=== PATIENT | female | born 1985 | race Caucasian/White ===

== ENCOUNTER 2021-06-04 16:40 | Outpatient (REF) | payer MEDICAID, SELFPAY ==
[2021-06-04 16:59] LABS: MANUAL DIFF FLAG NO
[2021-06-04 17:44] LABS: Basophils Percent Auto 0.6 % (0-2); Eosinophils Absolute Auto 0.1 X10*3/uL (0.0-0.4); Eosinophils Percent Auto 2.1 % (0-4); Hematocrit 37.7 % (37-47); Hemoglobin 12.6 g/dl (12.0-16.0); Imm Gran Abs Auto 0.01 X10*3/uL (0.00-0.03); Imm Gran Pct Auto 0.1 % (0.0-0.4); Lymphocytes Percent Auto 44.3 % (20-40); Mean Corpuscular HGB Conc 33.4 g/dl (31.0-35.0); Mean Corpuscular Hemoglobin 27.6 pg (27.0-33.0); Mean Corpuscular Volume 82.7 fL (80-98); Mean Platelet Volume 10.9 fL (9.4-12.3); Monocytes Absolute Auto 0.4 X10*3/uL (0.1-1.2); Monocytes Percent Auto 5.9 % (2-11); Neutrophils Absolute Auto 3.2 X10*3/uL (2.0-8.3); Platelet Count 259 X10*3/uL (160-400); Red Blood Count 4.56 X10*6/uL (4.20-5.50); Red Cell Distribution Width 13.3 % (11.0-16.0); White Blood Count 6.8 X10*3/uL (4.8-10.8)
[2021-06-04 18:06] LABS: Alanine Aminotransferase 6 U/L (0-31); Albumin Level 4.3 g/dL (3.5-5.0); Alkaline Phosphatase 79 U/L (39-117); Anion Gap 12 (12-20); Aspartate Amino Transferase 12 U/L (5-31); Bilirubin Total 0.6 mg/dL (0.0-1.0); Blood Urea Nitrogen 9 mg/dL (9-16); Calcium 9.3 mg/dL (8.4-10.2); Carbon Dioxide 25 mmol/L (22-29); Chloride 106 mmol/L (96-108); Estimated Glomerular Filt Rate > 60; Glucose Random 96 mg/dL (60-115); Potassium 3.8 mmol/L (3.3-5.1); Sodium 139 mmol/L (135-145); Total Protein 7.6 g/dL (6.5-8.0)
[2021-06-05 08:26] LABS: EBV-NA IgG Index >600.00 U/mL; EBV-VCA IgG Ab >750.00 U/mL; EBV-VCA IgM Ab <36.00 U/mL
== END 2021-06-04 16:41 | disposition home or self-care (01) ==
LOC: HO.LAB 16:40
PROVIDERS: Absent Provider Internal Medicine; PCP Internal Medicine; Visit Provider Family Medicine
DX: M79.10 Myalgia, unspecified site (principal)
CPT/HCPCS: 36415; 80053; 85025; 86664; 86665

== ENCOUNTER 2021-09-08 12:38 | Outpatient (REF) | payer MEDICAID, SELFPAY ==
--- NOTE | 2021-09-08 12:42 | EEG_ITS ---
This is a 16-channel EEG with an EKG lead. Patient is reported awake during the tracing. Background EEG rhythm during most of the tracing is 14 to 16 hertz, 5 to 20 microvolt posteriorly, lower amplitude fast anteriorly. During last part of the tracing, patient transitioned into drowsiness with no significant abnormality. Photic stimulation does not produce any significant driving. Hyperventilation is not performed. Cardiac lead does not reveal any significant abnormality. No sharp wave spikes or paroxysmal tendency noted. IMPRESSION: Unremarkable EEG. MD MARGUERITE Cazares/[place] / [id number]
== END 2021-09-08 12:39 | disposition home or self-care (01) ==
LOC: HO.NEURO 12:38
PROVIDERS: Visit Provider Internal Medicine
DX: R40.20 Unspecified coma (principal)
CPT/HCPCS: 95816

== ENCOUNTER 2022-03-30 09:59 | Outpatient (REF) | payer MEDICAID, SELFPAY ==
--- NOTE | ~2022-03-30 | US_ITS ---
EXAMINATION: US ABDOMEN COMPLETE CLINICAL INFORMATION: Right upper quadrant pain. Epigastric pain. COMPARISON: Ultrasound abdomen 07/07/2013. TECHNIQUE: Real-time imaging of the abdominal viscera. FINDINGS: PANCREAS: Normal. ABDOMINAL AORTA: The proximal, mid, and distal segments are normal in caliber. INFERIOR VENA CAVA: Visualized portions are normal. LIVER: Normal. The liver is normal in size. The liver contour is normal. Parenchymal echogenicity is normal. No focal hepatic lesion. There is no intrahepatic biliary duct dilatation seen. GALLBLADDER: Normal. The gallbladder is physiologically distended without evidence of stones, sludge, polyps, wall thickening or pericholecystic fluid. COMMON BILE DUCT: Normal in caliber measuring 0.4 cm in diameter. RIGHT KIDNEY: There is mild hydronephrosis. No renal calculi or focal parenchymal lesions. The kidney measures 10.1 cm in maximum dimension. LEFT KIDNEY: Normal. No hydronephrosis. No renal calculi or focal parenchymal lesions. The kidney measures 9.8 cm in maximum dimension. SPLEEN: Normal. The spleen measures 10.3 cm in maximum dimension. FREE FLUID: None. There are normal bilateral ureteral jets seen in the bladder. US/US abdomen complete IMPRESSION: Mild right hydronephrosis. Limited imaging through the bladder reveals a normal bilateral ureteral jets. Rest of the abdominal ultrasound is unremarkable
== END 2022-03-30 10:00 | disposition home or self-care (01) ==
LOC: HO.US 09:59
PROVIDERS: Visit Provider Family Medicine
DX: R10.13 Epigastric pain (principal)
CPT/HCPCS: 76700

== ENCOUNTER 2023-04-12 17:11 | Outpatient (REF) | payer MEDICAID, SELFPAY ==
[2023-04-12 19:55] LABS: Influenza A PCR NEGATIVE (Negative); Influenza B PCR NEGATIVE (Negative); Resp Syncy Virus RNA Qual PCR NEGATIVE (Negative); SARS COV2 PCR INHOUSE NEGATIVE (Negative)
== END 2023-04-12 17:12 | disposition home or self-care (01) ==
LOC: HO.HHCLNP 17:11
PROVIDERS: Visit Provider Registered Nurse
DX: Z20.822 Contact with and (suspected) exposure to COVID-19 (principal); R05.9 Cough, unspecified; B34.9 Viral infection, unspecified
CPT/HCPCS: 0241U

== ENCOUNTER 2023-06-19 13:09 | Outpatient (REF) | payer MEDICAID, SELFPAY ==
--- NOTE | ~2023-06-19 | XR_ITS ---
EXAMINATION: XR LUMBOSACRAL SPINE WITH OBLIQUES CLINICAL INFORMATION: Low back pain COMPARISON: None available. TECHNIQUE: AP, both oblique, and lateral views of the lumbar spine. Lateral view of the lumbosacral junction. FINDINGS: The vertebral bodies and posterior elements are normal. The disc spaces are preserved and the vertebral alignment is normal. The paraspinal soft tissues are normal. XR/XR lumbar spine 4V min IMPRESSION: Unremarkable examination.
== END 2023-06-19 13:10 | disposition home or self-care (01) ==
LOC: HO.XRAY 13:09
PROVIDERS: PCP Internal Medicine; Visit Provider Internal Medicine
DX: M54.42 Lumbago with sciatica, left side (principal); M54.41 Lumbago with sciatica, right side
CPT/HCPCS: 72110

== ENCOUNTER 2023-09-29 08:31 | Outpatient (REF) | payer MEDICAID, SELFPAY | END 2023-09-29 08:32 | disposition home or self-care (01) | LOC: HO.SH 08:31 | PROVIDERS: Visit Provider Internal Medicine | DX: Z01.10 Encounter for examination of ears and hearing without abnormal findings (principal); H93.293 Other abnormal auditory perceptions, bilateral; H92.02 Otalgia, left ear | CPT/HCPCS: 92557; 92567 ==

== ENCOUNTER 2024-11-12 10:27 | Outpatient (REF) | payer MEDICAID, SELFPAY ==
--- OUTSIDE RECORDS SUMMARY | 2024-11-12 19:09 | XMS_ITS | Encounter Summary ---
Author Organization [facility] Address [address] [place] [address] Care Team Providers Care Infant Room Teacher Name Role Phone Prieto Dacosta MD Primary Care Provider [phone] Reason for Referral * Imaging (Urgent) - Authorized Specialty Diagnoses / Procedures Referred By Contac t Referred To Contact Radiology Diagnoses Abnormal uterine bleeding Procedures Us Pelvis complete Gerri Pritchett CNM [address] [place] [address] Phone: tel: fax: [address] Phone: tel: fax: Referral ID Status Reason Start Date Expiration Date V isits Requested Visits Authorized [id number] Authorized 11/12/2024 11/12/2025 1 1 * Imaging (Urgent) - Authorized Specialty Diagnoses / Procedures Referred By Contac t Referred To Contact Radiology Diagnoses Abnormal uterine bleeding Procedures US Pelvis Transvaginal Gerri Pritchett CNM [address] [place] [address] Phone: tel: fax: [address] Phone: tel: fax: Referral ID Status Reason Start Date Expiration Date V isits Requested Visits Authorized [id number] Authorized 11/12/2024 11/12/2025 1 1 * Consultation (Routine) - Closed Specialty Diagnoses / Procedures Referred By Joaquim felix Referred To Contact Obstetrics Diagnoses Procreative management Gerri Pritchett CNM [address] [place] [address] Phone: tel: fax: Reproductive Medicine, [address] Phone: tel: fax: Referral ID Status Reason Start Date Expiration Date V isits Requested Visits Authorized [id number] Closed Specialty Services Required 11/12/2024 11/12/2025 1 1 Reason for Visit * Reason Comments Gynecologic Exam Encounter Details Date Type Department Care Team ([facility] st Contact Info) Description 11/12/2024 10:15 AM EDT Office Visit [facility] [address] [place] [phone] Gerri Pritchett CNM [address] [place] [address] Abnormal uterine bleeding (Primary Dx); Cervical cancer [...] from previous AMAB partner who is in [place]. Feels safe at home. Unsure of last [...] Blood Count 5.0 4.8 - 10.8 X10*3/uL [facility] Red Blood Count 4.33 4.20 - 5.50 X10*6/uL [facility] Hemoglobin 12.2 12.0 - 16.0 g/dl [facility] Hematocrit 36.6(L) 37.0 - 47.0 % [facility] Mean Corpuscular Volume 84.5 80.0 - 98.0 fL [facility] Mean Corpuscular Hemoglobin 28.2 27.0 - 33.0 pg [facility] Mean Corpuscular HGB Conc 33.3 31.0 - 35.0 g/dl [facility] Red Cell Distribution Width 13.6 11.0 - 16.0 % [facility] Platelet Count 255 160 - 400 X10*3/uL [facility] Mean Platelet Volume 10.5 9.4 - 12.3 fL [facility] NRBC Pct Auto 0.0 0.0 - 0.2 /100WBC [facility] NRBC Abs Auto 0.000 0.0 - 0.012 X10*3/uL [facility] Blood Venous blood specimen / Unknown 11/12/2024 10:54 AM EDT 11/12/2024 11:16 AM EDT [facility] LAB BLOOD ORDERABLES Marichuy l Result Performing Organization Address [facility] Co de Phone Number [facility] [address] [place] [phone] * TSH W/Reflex to FT4 (11/12/2024 10:54 AM EDT) TSH reflex Free T4 0.76 0.32 - 4.0 uIU/mL [facility] Blood Venous blood specimen / Unknown 11/12/2024 10:54 AM EDT 11/12/2024 11:[address] [facility] LAB BLOOD ORDERABLES Marichuy l Result Performing Organization Address [facility] Co de Phone Number [facility] [address] [place] [phone] documented in this encounter Visit Diagnoses [...] documented as of this encounter Care Teams Infant Room Teacher Relationship Specialty Start Date End Date Prieto Dacosta MD [address] [place] [phone] PCP - General Internal Medicine 12/01/11 documented as of this encounter
--- OUTSIDE RECORDS SUMMARY | 2024-11-12 19:09 | XMS_ITS | Encounter Summary ---
Author Organization [facility] Address [address] [place] [address] Care Team Providers Care Operations Boardman Name Role Phone Prieto Dacosta MD Primary Care Provider Reason for Visit * Reason Comments Med Refill Encounter Details Date Type Department Care Team ([facility] st Contact Info) Description 03/20/2023 Refill [facility] & PEDS [address] [place] [address] Prieto Dacosta MD [address] [place] [address] Seasonal allergic rhinitis due to other allergic [...] documented as of this encounter Care Teams Operations Boardman Relationship Specialty Start Date End Date Prieto Dacosta MD [address] [place] [address] PCP - General Internal Medicine 12/01/11 documented as of this encounter
--- OUTSIDE RECORDS SUMMARY | 2024-11-12 19:09 | XMS_ITS | Clinical Summary ---
Author Organization [facility] Address [address] [place] [phone] Care Team Providers Care Nitric Acid Plant Operator Name Role Phone Unavailable Primary Care Provider [...] Influencers of Health Screening 07/12/2022 COVID-19 Vaccine (1 - 2023-2 5 season) 2024 Influenza Vaccine (Season Ended) 2025 HIB Vaccines Aged Out No longer eligi [...]
--- OUTSIDE RECORDS SUMMARY | 2024-11-12 19:09 | XMS_ITS | Encounter Summary ---
Author Organization [facility] Address [address] [facility] [address] [place] [address] Care Team Providers Care Cdl B Driver Name Role Phone Prieto Dacosta MD Primary Care Provider [phone] Encounter Details Date Type Department Care Team (Late st Contact Info) Description 12/28/2023 Orders Only [facility] [address] [place] [address] ProviderMatt MD Social History Tobacco Use Types [...] documented as of this encounter Care Teams Cdl B Driver Relationship Specialty Start Date End Date Prieto Dacosta MD [address] [place] [phone] PCP - General Internal Medicine 12/01/11 documented as of this encounter
--- OUTSIDE RECORDS SUMMARY | 2024-11-12 19:09 | XMS_ITS | Clinical Summary ---
Author Organization [employer] Address [address] [place] [address] 7 [place] [address] Care Team Providers Care Commodities Requirements Analyst Name Role Phone Prieto Dacosta MD Primary Care Provider Allergies Active Allergy Reactions Criticality Noted Date [...] 10/30/19 25 2025 Active [facility] 1 each every 4 [...] Description 11/12/2024 10:15 AM EDT Office Visit [facility] [address] [place] [phone] Gerri Pritchett CNM Abnormal uterine bleeding (Primary Dx); Cervical cancer screening; Encntr screen for infections w sexl mode of transmiss; Procreative management 11/12/2024 Travel 10/29/2024 10:20 AM EDT Office Visit [facility] [address] [place] [address] Duarte Sanches MD Influenza B (Primary Dx); Mild intermittent asthma with exacerbation; Tobacco dependence; Metrorrhagia 10/29/2024 Travel 10/25/2024 Population Health Risk Score [facility] [address] [place] [phone] Provider, Population Health Generic 08/20/2024 5:40 PM EST Office Visit [facility] [address] [place] [address] Fab Perez MD Insomnia, unspecified [...] Free T4 0.76 0.32 - 4.0 uIU/mL [facility] Blood Venous blood specimen / Unknown 11/12/2024 10:54 AM EDT 11/12/2024 11:16 AM EDT us Gerri MARTIN LAB BLOOD ORDERABLES Marichuy lambert Result [facility] [address] [place] [phone] * (ABNORMAL) CBC (11/12/2024 10:54 AM EDT) Pathologist [facility] White Blood Count 5.0 4.8 - 10.8 X10*3/uL [facility] Red Blood Count 4.33 4.20 - 5.50 X10*6/uL [facility] Hemoglobin 12.2 12.0 - 16.0 g/dl [facility] Hematocrit 36.6(L) 37.0 - 47.0 % [facility] Mean Corpuscular Volume 84.5 80.0 - 98.0 fL [facility] Mean Corpuscular Hemoglobin 28.2 27.0 - 33.0 pg [facility] Mean Corpuscular HGB Conc 33.3 31.0 - 35.0 g/dl [facility] Red Cell Distribution Width 13.6 11.0 - 16.0 % [facility] Platelet Count 255 160 - 400 X10*3/uL [facility] Mean Platelet Volume 10.5 9.4 - 12.3 fL [facility] NRBC Pct Auto 0.0 0.0 - 0.2 /100WBC [facility] NRBC Abs Auto 0.000 0.0 - 0.012 X10*3/uL [facility] Blood Venous blood specimen / Unknown 11/12/2024 10:54 AM EDT 11/12/2024 11:16 AM EDT us Gerri MARTIN LAB BLOOD ORDERABLES Marichuy l Result [facility] [address] [place] [phone] * (ABNORMAL) Influenza B (ID NOW Rapid Molecular) (10/29/2024 10:20 AM EDT) [facility] Influenza B Positive( A) Negative, Indeterminate [facility] Swab 10/29/2024 10:2 0 AM EDT us Duarte Sanches MD POINT OF CARE TEST ENTER/EDIT OR DERABLES Final Result Performing Organization Address [facility]/ZIP Co de Phone Number [facility] [address] [place] [phone] * Influenza A (ID NOW Rapid Molecular) (10/29/2024 10:20 AM EDT) Influenza A Negative Negative, Indeterminate [facility] Swab 10/29/2024 10:2 0 AM EDT us Duarte Sanches MD POINT OF CARE TEST ENTER/EDIT OR DERABLES Final Result Performing Organization Address [facility] Co de Phone Number [facility] [address] [place] [phone] * POCT Rapid COVID Ag (10/29/2024 10:20 AM EDT) Rapid COVID Ag Negative [facility] Swab 10/29/2024 10:2 0 AM EDT us Duarte Sanches MD POINT OF CARE TEST ENTER/EDIT OR DERABLES Final Result Performing Organization Address [facility] Co de Phone Number [facility] [address] [place] [phone] * HIV 1/2 ANTIGEN/ANTIBODY,FOURTH GENERATION W/RFL (08/31/2021 10:43 AM EST) HIV-1/2 ANTIGEN AND ANTIBODIES, 4TH GENERATION W/ REFLEX NON-REACT KATARZYNA NON-REACT KATARZYNA [facility] Comment: HIV-1 antigen and HIV-1/HIV-2 [...] ? For additional information please refer to http://education.Fablic/faq/LRW469 (This link is being provided for informational/ educational purposes only.) ? The performance of this assay has not been clinically validated in patients less than 2 years old. ?? 08/31/2021 10:4 3 AM EST us Jackie Blackmon MD LAB BLOOD ORDERABLES Final Re sult Performing Organization Address City/State/ZIP Co wy Phone Number [facility] [address] from Last 3 Months or Most Recently Relevant to Health Maintenance Insurance [address] [place], [place] [id number] Care Teams Commodities Requirements Analyst Relationship Specialty Start Date End Date Prieto Dacosta MD [address] [place] [phone] PCP - General Internal Medicine 12/01/11
--- OUTSIDE RECORDS SUMMARY | 2024-11-12 19:09 | XMS_ITS | Encounter Summary ---
Author Organization [employer] Address [address] [facility] 7 [place] [address] Care Team Providers Care Hotel Casino Floorperson Name Role Phone Prieto Dacosta MD Primary [...] documented as of this encounter Care Teams Hotel Casino Floorperson Relationship Specialty Start Date End Date Prieto Dacosta MD [address] [place] [phone] PCP - General Internal Medicine 12/01/11 documented as of this encounter
[2024-11-14 15:18] LABS: C. trachomatis RNA TMA NOT DETECTED (NOT DETECTED); N. gonorrhoeae RNA TMA NOT DETECTED (NOT DETECTED); Trichomonas (NAAT) NOT DETECTED (NOT DETECTED)
[2024-11-20 14:56] LABS: HPV Genotype 16 Negative (Negative); HPV Genotype 18 Negative (Negative); HPV High Risk Negative (Negative)
== END 2024-11-12 10:28 | disposition home or self-care (01) ==
LOC: HO.LNP 10:27
PROVIDERS: Visit Provider Advanced Practice Midwife
DX: Z12.4 Encounter for screening for malignant neoplasm of cervix (principal); Z11.3 Encounter for screening for infections with a predominantly sexual mode of transmission; Z11.51 Encounter for screening for human papillomavirus (HPV)
CPT/HCPCS: 87491; 87591; 87626; 87661; 88175

== ENCOUNTER 2024-11-12 10:52 | Outpatient (REF) | payer MEDICAID, SELFPAY ==
[2024-11-12 11:31] LABS: Hematocrit 36.6 % (37.0-47.0); Hemoglobin 12.2 g/dl (12.0-16.0); Mean Corpuscular HGB Conc 33.3 g/dl (31.0-35.0); Mean Corpuscular Hemoglobin 28.2 pg (27.0-33.0); Mean Corpuscular Volume 84.5 fL (80.0-98.0); Mean Platelet Volume 10.5 fL (9.4-12.3); Platelet Count 255 X10*3/uL (160-400); Red Blood Count 4.33 X10*6/uL (4.20-5.50); Red Cell Distribution Width 13.6 % (11.0-16.0)
[2024-11-12 12:20] LABS: TSH reflex Free T4 0.76 uIU/mL (0.32-4.0)
--- OUTSIDE RECORDS SUMMARY | 2024-11-12 13:04 | XMS_ITS | Clinical Summary ---
Author Organization [facility] Address [address] [place] [address] 7 [place] [address] Care Team Providers Care Broadcast Systems Engineer Name Role Phone Prieto Dacosta MD Primary Care Provider [phone] Allergies Active Allergy Reactions Criticality Noted Date Comments Morphine Hives 06/02/2021 Sulfa Antibiotics 12/08/2011 Medications * This document contains information received from the source organization and may not represent a complete record from that organization. hydrOXYzine HCl (Atarax) 25 MG tablet TOME JR TABLETA JF VECES AL D A CUANDO SEA NECESARIO 01/27/20 22 Active FLUoxetine (PROzac) 20 MG capsuleIndicat ions:Depressiv e disorder TOME JR C PSULA TODOS LOS D EN LA MA JODI 30 capsule 11 05/15/20 23 Active cyclobenzaprin e (Flexeril) 10 MG tabletIndicati ons:Acute midline low back pain with bilateral sciatica Take 1 tablet (10 mg) by mouth 3 times daily for 10 days. 30 tablet 06/19/20 23 Active fluticasone (Flonase) 50 MCG/ACT nasal sprayIndicatio ns:Acute viral syndrome Administer 2 sprays into each nostril in the morning. Shake gently. Before first use, prime pump. After use, clean tip and replace cap. 48 g 07/11/20 23 Active varenicline (Chantix Continuing Month Arnav) 1 MG tablet Take 1 tablet (1 mg) by mouth 2 times daily. Take with full glass of water. 60 tablet 2 08/17/19 24 Active Spacer/Aero-Ho lding Chambers (OptiChamber Stacy) misc 1 each every 4 (four) hours if needed (asthma). 1 each 08/17/19 24 Active Spacer/Aero-Ho lding Chambers (OptiChamber Stacy) misc 1 each every 4 (four) hours if needed (asthma). 1 each 10/16/19 24 Active acetaminophen (Tylenol) 500 MG tablet Take 2 tablets (1,000 mg) by mouth every 6 (six) hours if needed for moderate pain or fever for up to 25 doses. 30 tablet 10/16/19 24 Active azithromycin (Zithromax Z-Arnav) 250 MG tablet Take 2 tablets once on day 1, then 1 tablet 1x/day for 4 days. 6 tablet 10/16/19 24 Active nicotine (Nicoderm CQ) 7 MG/24HR patch Place 1 patch on the skin 1 (one) time each day at the same time. 14 patch 10/16/19 24 Active Azelastine HCl 137 MCG/SPRAY solution ADMINISTER 2 SPRAYS INTO EACH NOSTRIL 2 TIMES DAILY. USE IN EACH NOSTRIL DIRECTED 30 mL 3 11/14/19 24 Active neomycin-bacit racin-polymyxi n (Neosporin Original) ointment Apply topically 2 times daily. Apply to left 3rd toe 10 g 12/29/19 24 Active ibuprofen 400 MG tablet Take 1 tablet (400 mg) by mouth every 6 (six) hours if needed for moderate pain or fever for up to 30 doses. 30 tablet 12/29/19 24 Active nicotine polacrilex (Commit) 4 MG lozenge Dissolve 1 lozenge (4 mg) in the mouth every 2 (two) hours if needed for smoking cessation. 100 lozenge 12/29/19 24 Active Misc. Devices (Pulse Oximeter For Finger) miscIndication s:COVID-19 To use every 4 hours. Call the office if O2 sat<88 % 1 each 01/25/20 24 Active Paxlovid, 300/100, 20 x 150 MG & 10 x 100MG tablet therapy packIndication s:COVID-19 TAKE 1 DOSE BY MOUTH IN THE MORNING AND AT BEDTIME. 30 each 01/26/20 24 Active nicotine (Nicoderm, Step 2) 14 MG/24HR patch PLACE 1 PATCH ON THE SKIN 1 TIME EACH DAY AT THE SAME TIME. 42 patch 04/08/20 24 Active loratadine (Claritin) 10 MG tabletIndicati ons:Acute viral syndrome TOME JR TABLETA POR VIA ORAL CADA MANANA 90 tablet 04/16/20 24 Active diphenhydrAMIN E (BENADryl) 25 MG tabletIndicati ons:Insomnia, unspecified type Take 1-2 tablets (25mg - 50mg) PO at bedtime prn for insomnia 20 tablet 08/20/19 25 Active nicotine (Nicoderm CQ) 14 MG/24HR patch Place 1 patch on the skin 1 (one) time each day at the same time. 14 patch 1 10/30/19 25 Active nicotine (Nicoderm CQ) 21 MG/24HR patch Place 1 patch on the skin 1 (one) time each day at the same time. 42 patch 1 10/30/19 25 Active nicotine (Nicoderm CQ) 7 MG/24HR patch Place 1 patch on the skin 1 (one) time each day at the same time. 14 patch 1 10/30/19 25 2024 Active nicotine polacrilex (Commit) 2 MG lozenge Dissolve 1 lozenge (2 mg) in the mouth if needed for smoking cessation. 100 lozenge 1 10/30/19 25 2024 Active albuterol (ProAir HFA) 108 (90 Base) MCG/ACT inhaler Inhale 2 puffs every 4 (four) hours if needed for wheezing or shortness of breath. 18 g 2 10/30/19 25 Active albuterol (2.5 MG/3ML) 0.083% nebulizer solution Take 3 mL (2.5 mg) by nebulization every 6 (six) hours if needed for wheezing or shortness of breath. 75 mL 2 10/30/19 25 2025 Active Spacer/Aero-Ho lding Chambers ([facility]) misc 1 each every 4 (four) hours if needed (asthma). 1 each 10/30/19 25 Active acetaminophen (Tylenol) 500 MG tablet Take 2 tablets (1,000 mg) by mouth every 6 (six) hours if needed for moderate pain or fever for up to 25 doses. 50 tablet 10/30/19 25 Active ibuprofen 400 MG tablet Take 1 tablet (400 mg) by mouth every 6 (six) hours if needed for moderate pain or fever for up to 30 doses. 30 tablet 10/30/19 25 Active cetirizine (ZyrTEC) 10 MG tablet Take 1 tablet (10 mg) by mouth in the morning. 30 tablet 11 03/20/20 23 2022 Discontinued albuterol (ProAir HFA) 108 (90 Base) MCG/ACT inhaler Inhale 2 puffs every 4 (four) hours if needed for wheezing or shortness of breath. 18 g 2 10/16/19 24 2024 Discontinued(R eorder (will not trigger notification to Pharmacy)) albuterol (2.5 MG/3ML) 0.083% nebulizer solution Take 3 mL (2.5 mg) by nebulization every 6 (six) hours if needed for wheezing or shortness of breath. 75 mL 1 10/16/19 24 2024 Discontinued(R eorder (will not trigger notification to Pharmacy)) predniSONE (Deltasone) 20 MG tablet Take 2 tablets (40 mg) by mouth Once per day for 5 days. 10 tablet 10/30/19 25 2024 Active Problems Problem Noted Date Diagnosed Date Mild intermittent asthma with exacerbation 10/29 Tobacco dependence 08/17/2023 Asthma 08/13/2021 Difficulty urinating 01/12/2018 Obesity 05/04/2006 Urinary tract infectious disease 04/14/2006 Anxiety state 03/13/2006 Depressive disorder 03/13/2006 Allergic rhinitis 02/23/2006 Encounters * This document contains information received from the source organization and may not represent a complete record from that organization. Date Type Department Care Team Description 11/12/2024 10:15 AM EDT Office Visit [facility] [address] [place] [phone] Gerri Pritchett CNM Abnormal uterine bleeding (Primary Dx); Cervical cancer screening; Encntr screen for infections w sexl mode of transmiss; Procreative management 11/12/2024 Travel 10/29/2024 10:20 AM EDT Office Visit [facility] [address] [place] [address] Duarte Sanches MD Influenza B (Primary Dx); Mild intermittent asthma with exacerbation; Tobacco dependence; Metrorrhagia 10/29/2024 Travel 10/25/2024 Population Health Risk Score [facility] [address] [place] [phone] Provider, Population Health Generic 08/20/2024 5:40 PM EST Office Visit [facility] [address] [place] [address] Fab Perez MD Insomnia, unspecified type (Primary Dx) from Last 3 Months Family History Medical History Relation Name Comments Lung cancer Sister Relation Name Status Comments Sister Social History Tobacco Use Types Packs/Day Years Used Date Smoking Tobacco: Some Days Cigarettes 2 10 Smokeless Tobacco: Never Tobacco Cessation:Ready to Q uit: Not Asked; Counseling Given: Not Answered Alcohol Use Standard Drinks/Week Comments Never 0 (1 standard drink = 0.6 oz pur e alcohol) Depression Answer Date Recorded Patient Health Questionnaire-9 Score 21 11/12/2024 Patient Health Questionnaire-9 Score 21 11/12/2024 Last PHQ-9: Questionnaire Data Not on file 0 11/12/2024 Housing Stability Answer Date Recorded What is your housing situation today? I have asher more 06/05/[address] you li ve. Do you have problems with any of the following? None of the above 06/05/2023 Food Insecurity Answer Date Recorded Within the past 12 months, y ou worried that your food would run out before you got money to buy more: Never True 06/05/2023 Within the past 12 months,th e food you bought just didn't last and you didn't have enough money to get more: Never True Transportation Answer Date Recorded In the past 12 months, has l ack of transportation kept you from medical appts, meetings, work or from getting things needed for daily living? No 06/05/2023 Utilities Answer Date Recorded In the past 12 months, has t he electric, gas, oil or water company threatened to shut off services in your home? No 06/05/2023 Depression Answer Date Recorded Patient Health Questionnaire-2 Score 6 11/12/2024 Comments No Sex and Gender Information Value Date Recorded Sex Assigned at Female 06/13/2022 10:18 AM EDT Legal Sex Female 10:18 AM EDT Gender Identity Female 06/13/2022 10:18 AM EDT Sexual Orientation Straight 06/13/2022 10 :18 AM EDT Last Filed Vital Signs Vital Sign Reading Time Taken Comments Blood Pressure 121/81 11/12/2024 10:25 AM EDT Pulse 98 11/12/2024 10:25 AM EDT Temperature 36.6 ??C (97.8 ??F) 11/12/2024 10:25 AM E DT Respiratory Rate 20 11/12/2024 10:25 AM EDT Oxygen Saturation 98% 11/12/2024 10:25 AM EDT Inhaled Oxygen Concentration - - Weight 80.3 kg (177 lb) 11/12/2024 10:25 AM EDT Height 157.5 cm (5' 2 ) 11/12/2024 10:25 AM EDT Body Mass Index 32.37 11/12/2024 10:25 AM EDT Plan of Treatment Health Maintenance Due Date Last Done Comments Lipid Panel 1987 Alcohol/Substance Use Screening 1999 Hepatitis C Screening 2005 DTaP/Tdap/Td Vaccines (1 - Tdap) 2006 Hepatitis B Vaccines (1 of 3 - 19+ 3-dose series) 2006 Pneumococcal Vaccine: Pediatrics (0 to 5 Years) and At-Risk Patients (6 to 49) Years) (1 of 2 - PCV) 2006 Pap Smear 02/29/2008 Cervical Cancer Screening 2017 HPV/Cotest 2017 SDOH Screening 10/04/2023 10/04/2022 COVID-19 Vaccine (3 - 2023-2 5 season) 2024 09/24/2021, 04/12/2021 Influenza Vaccine (#1) 2024 Depression Monitoring (PHQ-9) 05/14/2025, 11/12/2024 Depression Screening 11/12/2025 11/12/2024, 11/12/2024 Family Planning (PISQ) 11/12/2025 11/12/2024 Tobacco Screening 11/12/2025 11/12/2024 Zoster Vaccines (1 of 2) 2037 RSV Patients and Patients Aged 60 years or older (1 - 1-dose 75+ series) 2062 HIV Screening Completed 08/31/2021 HIB Vaccines Aged Out No longer eligi ble based on patient's age to complete this topic HPV Vaccines Aged Out No longer eligi ble based on patient's age to complete this topic Hepatitis A Vaccines Aged Out No long er eligible based on patient's age to complete this topic IPV Vaccines Aged Out No longer eligi ble based on patient's age to complete this topic Meningococcal Vaccine Aged Out No chioma blas eligible based on patient's age to complete this topic RSV under 20 months Aged Out No longe r eligible based on patient's age to complete this topic Rotavirus Vaccines Aged Out No longer eligible based on patient's age to complete this topic Procedures Procedure Name Priority Date/Time Associated Diagnosis Comments CBC Routine 11/12/2024 10:54 AM EDT Abnormal uterine bleeding TSH W/REFLEX TO FT4 Routine 11/12/2024 1 0:54 AM EDT Abnormal uterine bleeding POCT INFLUENZA B (ID NOW RAPID MOLECULAR) Routine 10/29/2024 10:20 AM EDT Influenza B POCT INFLUENZA A (ID NOW RAPID MOLECULAR) Routine 10/29/2024 10:20 AM EDT Influenza B POCT RAPID COVID ANTIGEN Routine 10/29/2024 10:20 AM EDT Influenza B HIV 1/2 ANTIGEN/ANTIBODY, FOURTH GENERATION W/RFL Routine 08/31/2021 10:43 AM EST from Last 3 Months or Most Recently Relevant to Health Maintenance Results * TSH W/Reflex to FT4 (11/12/2024 10:54 AM EDT) TSH reflex Free T4 0.76 0.32 - 4.0 uIU/mL [facility] Blood Venous blood specimen / Unknown 11/12/2024 10:54 AM EDT 11/12/2024 11:16 AM EDT us Gerri MARTIN LAB BLOOD ORDERABLES Marichuy lambert Result [facility] [address] [place] [phone] * (ABNORMAL) CBC (11/12/2024 10:54 AM EDT) Pathologist [facility] White Blood Count 5.0 4.8 - 10.8 X10*3/uL [facility] Red Blood Count 4.33 4.20 - 5.50 X10*6/uL [facility] Hemoglobin 12.2 12.0 - 16.0 g/dl [facility] Hematocrit 36.6(L) 37.0 - 47.0 % [facility] Mean Corpuscular Volume 84.5 80.0 - 98.0 fL [facility] Mean Corpuscular Hemoglobin 28.2 27.0 - 33.0 pg [facility] Mean Corpuscular HGB Conc 33.3 31.0 - 35.0 g/dl [facility] Red Cell Distribution Width 13.6 11.0 - 16.0 % [facility] Platelet Count 255 160 - 400 X10*3/uL [facility] Mean Platelet Volume 10.5 9.4 - 12.3 fL [facility] NRBC Pct Auto 0.0 0.0 - 0.2 /100WBC [facility] NRBC Abs Auto 0.000 0.0 - 0.012 X10*3/uL [facility] Blood Venous blood specimen / Unknown 11/12/2024 10:54 AM EDT 11/12/2024 11:16 AM EDT us Gerri MARTIN LAB BLOOD ORDERABLES Marichuy l Result [facility] [address] [place] [phone] * (ABNORMAL) Influenza B (ID NOW Rapid Molecular) (10/29/2024 10:20 AM EDT) [facility] Influenza B Positive( A) Negative, Indeterminate [facility] Swab 10/29/2024 10:2 0 AM EDT us Duarte Sanches MD POINT OF CARE TEST ENTER/EDIT OR DERABLES Final Result Performing Organization Address [facility]/ZIP Co de Phone Number [facility] [address] [place] [phone] * Influenza A (ID NOW Rapid Molecular) (10/29/2024 10:20 AM EDT) Influenza A Negative Negative, Indeterminate [facility] Swab 10/29/2024 10:2 0 AM EDT us Duarte Sanches MD POINT OF CARE TEST ENTER/EDIT OR DERABLES Final Result Performing Organization Address [facility] Co de Phone Number [facility] [address] [place] [phone] * POCT Rapid COVID Ag (10/29/2024 10:20 AM EDT) Rapid COVID Ag Negative [facility] Swab 10/29/2024 10:2 0 AM EDT us Duarte Sanches MD POINT OF CARE TEST ENTER/EDIT OR DERABLES Final Result Performing Organization Address [facility] Co de Phone Number [facility] [address] [place] [phone] * HIV 1/2 ANTIGEN/ANTIBODY,FOURTH GENERATION W/RFL (08/31/2021 10:43 AM EST) HIV-1/2 ANTIGEN AND ANTIBODIES, 4TH GENERATION W/ REFLEX NON-REACT KATARZYNA NON-REACT KATARZYNA [facility] Comment: HIV-1 antigen and HIV-1/HIV-2 antibodies were not detected. There is no laboratory evidence of HIV infection. ?? PLEASE NOTE: This information has been disclosed to you from records whose confidentiality may be protected by state law. ??If your state requires such protection, then the state law prohibits you from making any further disclosure of the information without the specific written consent of the person to whom it pertains, or as otherwise permitted by law. A general authorization for the release of medical or other information is NOT sufficient for this purpose. ? For additional information please refer to http://education.Ameriprime/faq/IGX621 (This link is being provided for informational/ educational purposes only.) ? The performance of this assay has not been clinically validated in patients less than 2 years old. ?? 08/31/2021 10:4 3 AM EST us Jackie Blackmon MD LAB BLOOD ORDERABLES Final Re sult Performing Organization Address City/State/ZIP Co ak Phone Number [facility] [address] from Last 3 Months or Most Recently Relevant to Health Maintenance Insurance [address] [place], [place] [address] Care Teams Broadcast Systems Engineer Relationship Specialty Start Date End Date Prieto Dacosta MD [address] [place] [phone] PCP - General Internal Medicine 12/01/11
--- OUTSIDE RECORDS SUMMARY | 2024-11-12 13:04 | XMS_ITS | Encounter Summary ---
Author Organization [facility] Address [address] [place] [address] Care Team Providers Care Basket Machine Operator Name Role Phone Prieto Dacosta MD Primary Care Provider [phone] Encounter Details Date Type Department Care Team (Late st Contact Info) Description 12/28/2023 Orders Only [facility] [address] [place] [address] ProviderMatt MD Social History Tobacco Use Types Packs/Day Years Used Date Smoking Tobacco: Every Day Cigarettes 2 10 Smokeless Tobacco: Never Depression Answer Date Recorded Patient Health Questionnaire-9 Score 15 10/04/2022 Housing Stability Answer Date Recorded What is your housing situation today? I have asher argenis 06/05/[address] you li [...] Answer Date Recorded Patient Health Questionnaire-2 Score 2 10/04/2022 Comments Unknown Sex and Gender Information Value Date Recorded Sex Assigned at Female 06/13/2022 10:18 AM EDT Legal Sex Female 10:18 AM EDT Gender Identity Female 06/13/2022 10:18 AM EDT Sexual Orientation Straight 06/13/2022 10 :18 AM EDT documented as of this encounter Plan of Treatment Not on file documented as of this encounter Procedures Procedure Name Priority Date/Time Associated Diagnosis Comments XR FOOT 3+ VIEWS RIGHT Routine 11/28/2023 9:56 AM EDT documented in this encounter Results * XR Foot 3+ Views Right (11/28/2023 9:56 AM EDT) Anatomical Region Laterality Modality Lower Extremities, Foot Right Radiogra phic Imaging us Historical Provider MD CONNELLY XR PROCEDURES Final R esult documented in this encounter Visit Diagnoses Not on filedocumented in this encounter Additional Health Concerns Assessment Noted Time PHQ-9 Depression Total Score: 15 10/04/2 023 9:18 AM EST documented as of this encounter Care Teams Basket Machine Operator Relationship Specialty Start Date End Date Prieto Dacosta MD [address] [place] [phone] PCP - General Internal Medicine 12/01/11 documented as of this encounter
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
--- OUTSIDE RECORDS SUMMARY | 2024-11-12 13:04 | XMS_ITS | Encounter Summary ---
Author Organization [facility] Address [address] [place] [address] Care Team Providers Care Director Of Transportation Name Role Phone Prieto Dacosta MD Primary Care Provider Reason for Visit * Reason Comments Med Refill Encounter Details Date Type Department Care Team ([facility] st Contact Info) Description 03/20/2023 Refill [facility] [address] [place] [address] Prieto Dacosta MD [address] [place] [address] Seasonal allergic rhinitis due to other allergic trigger (Primary Dx) Social History Tobacco Use Types Packs/Day Years Used Date Smoking Tobacco: Every Day Cigarettes 2 10 Smokeless Tobacco: Never Depression Answer Date Recorded Patient Health Questionnaire-9 Score 15 10/04/2022 Depression Answer Date Recorded Patient Health Questionnaire-2 [...] on file documented as of this encounter Visit Diagnoses Diagnosis Seasonal allergic rhinitis due to other allergic trigger- Primary documented in this encounter Additional Health Concerns Assessment Noted Time PHQ-9 Depression Total Score: 15 023 9:18 AM EST documented as of this encounter Care Teams Director Of Transportation Relationship Specialty Start Date End Date Prieto Dacosta MD [address] [place] [address] PCP - General Internal Medicine 12/01/11 documented as of this encounter
--- OUTSIDE RECORDS SUMMARY | 2024-11-12 13:04 | XMS_ITS | Clinical Summary ---
Author Organization [facility] Address [address] [place] [phone] Care Team Providers Care Nutrition Helper Name Role Phone Unavailable Primary Care Provider Unavailabl e Surgical History Surgery Date Site/Laterality Comments SECTION PROCEDURE: HISTORICAL DELIVERY; COMMENT: x2 TUBAL LIGATION PROCEDURE: HISTORICAL TUBAL LIGATION Family History Medical History Relation Name Comments Ovarian cancer Aunt 1 Prostate cancer Maternal Grandfather Breast cancer Other 1 maternal great aunt Colon cancer Neg Hx Uterine cancer Neg Hx Relation Name Status Comments Aunt 1 Aunt 2 Maternal Grandfather Other 1 Other 2 Social History Tobacco Use Types Packs/Day Years Used Date Smoking Tobacco: Heavy Smoker Cigarettes Smokeless Tobacco: Never Alcohol Use Standard Drinks/Week Comments No 0 (1 standard drink = 0.6 oz pur e alcohol) Comments Unknown Sex and Gender Information Value Date Recorded Sex Assigned at Not on file Legal Sex Female 1:15 PM EST Gender Identity Not on file Sexual Orientation Not on file Obstetrics History Plan of Treatment Health Maintenance Due Date Last Done Comments DTaP,Tdap,and Td Vaccines (1 - Tdap) 2006 Hepatitis B Vaccines (1 of 3 - 19+ 3-dose series) 2006 Pneumococcal Vaccine: Pediat rics (0 to 5 Years) and At-Risk Patients (6 to 64 Years) (1 of 2 - PCV) 2006 Cervical Cancer Screening: P ap Smear 02/29/2008 Depression Screening 07/12/2022 HIV Screening 07/12/2022 Hepatitis C Screening 07/12/2022 Social Influencers of Health Screening 07/12/2022 COVID-19 Vaccine ( - 2023-2 5 season) 2024 Influenza Vaccine (#1) 2024 HIB Vaccines Aged Out No longer eligi [...] on patient's age to complete this topic MMR Vaccines Aged Out No longer eligi ble based on patient's age to complete this topic Meningococcal ACWY Vaccine Aged Out N o longer eligible based on patient's age to complete this topic Meningococcal B Vacine Aged Out No lo nger eligible based on patient's age to complete this topic RSV Immunization Patients Un damari 20 months Aged Out No longer eligible b ased on patient's age to complete this topic Varicella Vaccines Aged Out No longer eligible based on patient's age to complete this topic
--- OUTSIDE RECORDS SUMMARY | 2024-11-12 13:04 | XMS_ITS | Encounter Summary ---
Author Organization [employer] Address [address] [facility] [address] [place] [address] Care Team Providers Care Detacher Name Role Phone Prieto Dacosta MD Primary Care Provider Encounter Details Date Type Department Care Team (Latest Contact Info) Description 11/12/2024 Travel Social History Tobacco Use Types Packs/Day Years [...] documented as of this encounter Visit Diagnoses Not on filedocumented in this encounter Additional Health Concerns Assessment Noted Time PHQ-9 Depression Total Score: 21 025 11:29 AM EDT documented as of this encounter Care Teams Detacher Relationship Specialty Start Date End Date Prieto Dacosta MD [address] [place] [phone] PCP - General Internal Medicine 12/01/11 documented as of this encounter
== END 2024-11-12 10:53 | disposition home or self-care (01) ==
LOC: HO.HHCL 10:52
PROVIDERS: Visit Provider Advanced Practice Midwife
DX: N93.9 Abnormal uterine and vaginal bleeding, unspecified (principal)
CPT/HCPCS: 36415; 84443; 85027

== ENCOUNTER 2025-02-17 22:24 | Emergency (ER) | payer MEDICAID, SELFPAY ==
[2025-02-17 22:31] VITALS: BP 128/75; PULSE 95; RESP 16; TEMP 36.4; O2SAT 100; BMI 32.4
--- OUTSIDE RECORDS SUMMARY | 2025-02-18 02:27 | XMS_ITS | Clinical Summary ---
Author Organization [facility] Address [address] [place] [address] Phone Care Team Providers Care Rigging Slinger Name Role Phone Physician, No Pcp Primary Care Provider Unavaila ble Surgical History Surgery Date Site/Laterality Comments SECTION [...] 5 Years) and At-Risk Patients (6 to 49 Years) (1 of 2 - PCV) 2006 Cervical Cancer Screening: P ap Smear 02/29/2008 Cholesterol Screening (Lipid Panel) 07/12/2022 Hepatitis C Screening 07/12/2022 Social Influencers of Health Screening 07/12/2022 COVID-19 Vaccine (1 - 2023-2 5 season) 2024 Influenza Vaccine (#1) 2025 Depression Screening 11/12/2025 11/12/2024 HIV Screening Completed 08/31/2021 HIB Vaccines Aged [...] age to complete this topic Meningococcal B Vaccine Aged Out No l onger eligible based on patient's age to complete this topic RSV Immunization Patients Un damari 20 months Aged Out No longer eligible b ased on patient's age to complete this topic Varicella Vaccines Aged Out No longer eligible based on patient's age to complete this topic Insurance MEDICAID - [place] Care Teams Rigging Slinger Relationship Specialty Start Date End Date Physician, No Pcp PCP - General 11/16/24
--- OUTSIDE RECORDS SUMMARY | 2025-02-18 02:27 | XMS_ITS | Encounter Summary ---
Author Organization [employer] Address [address] [place], [place] [phone] Care Team Providers Care Urban Anthropologist Name Role Phone Prieto Dacosta MD Primary Care Provider Reason for Visit * Reason Comments Med Refill Encounter Details Date Type Department Care Team ([facility] st Contact Info) Description 03/20/2023 Refill [facility] [address] [place], [place] [phone] Prieto Dacosta MD [address] [place], [place] [phone] Seasonal allergic rhinitis due to other allergic [...] documented as of this encounter Care Teams Urban Anthropologist Relationship Specialty Start Date End Date Prieto Dacosta MD [address] [place] [phone] PCP - General Internal Medicine 12/01/11 documented as of this encounter
== END 2025-02-18 02:28 | disposition left against medical advice (07) ==
PROVIDERS: Emergency Provider Emergency Medicine; PCP Internal Medicine
DX: N63.10 Unspecified lump in the right breast, unspecified quadrant (principal); Z53.21 Procedure and treatment not carried out due to patient leaving prior to being seen by health care provider
CPT/HCPCS: 99281

== ENCOUNTER 2025-06-03 09:17 | Outpatient (REF) | payer MEDICAID, SELFPAY ==
--- NOTE | 2025-06-03 | EMG_ITS ---
Chief complaint: Pain and numbness bilateral upper extremities Reason for referral: R20.2, M79.601, M79.602 paresthesia of upper extremities Referred by: Prieto Dacosta MD Procedure done: Nerve conduction study of bilateral upper extremity with bilateral EMG of paraspinals Bilateral median and ulnar motor studies were performed bilateral radial sensory and median and ulnar sensory mixed studies were performed an EMG needle examination was performed. Median mixed distal latencies were significantly prolonged bilaterally with conduction velocities in 20s on the right side and 30s on left. Right median motor distal latencies were significantly prolonged. There was mild bilateral ulnar motor nerve slowing across elbow. Impression: 1. 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 Mild bilateral ulnar neuropathy across cubital tunnel MTDD
== END 2025-06-03 09:18 | disposition home or self-care (01) ==
LOC: HO.NEURO 09:17
PROVIDERS: PCP Internal Medicine; Visit Provider Internal Medicine
DX: R20.2 Paresthesia of skin (principal); M79.602 Pain in left arm; M79.601 Pain in right arm
CPT/HCPCS: 95886; 95911

== ENCOUNTER → 2025-06-03 09:19 | Outpatient (BNV) | payer MEDICAID, SELFPAY | PROVIDERS: PCP Internal Medicine; Visit Provider Psychiatry & Neurology Neurology | DX: G56.03 Carpal tunnel syndrome, bilateral upper limbs (principal) | CPT/HCPCS: 95886; 95911 ==